=== PATIENT | female | born 1965 | race African-American/Black ===

== ENCOUNTER 2021-10-10 08:44 | Emergency (ER) | payer BC, MEDICAID ==
[~2021-10-10] VITALS: Ht 167.6 cm; Wt 95.0 kg
[2021-10-10] MEDS ORDERED: KETOROLAC 30MG/ML VIAL IV STA (09:10)
[2021-10-10 09:39] LABS: BASOPHILS % 0.3 % (0.0-2.0); HEMATOCRIT. 40.8 % (36.0-48.0); LYMPHOCYTES % 47.7 % (20.0-50.0); MEAN CORPUSCULAR HEMOGLOBIN 28.5 pg (28.0-32.0); MEAN CORPUSCULAR VOLUME 89.7 fL (81.0-99.0); MEAN PLATELET VOLUME 7.5 fl (7.4-10.4); MONOCYTES % 6.8 % (2.0-8.0); NEUTROPHILS % 39.2 % (40.0-76.0); PLATELET 269 x1000/uL (130-400); RED BLOOD CELL COUNT 4.55 mill/uL (4.2-5.4); RED CELL DISTRIBUTION WIDTH 14.3 % (11.6-14.6)
[2021-10-10 09:43] LABS: CHLORIDE 111 mEq/L (98-107)
[2021-10-10] MEDS ORDERED: CYCL10TA7 MT (11:03)
[2021-10-10] MEDS ORDERED: IBUP-2029 MT (11:03)
[2021-10-10 11:31] VITALS: BP 122/81
== END 2021-10-10 11:32 | disposition home or self-care (01) ==
LOC: ER 08:54
DX: M54.6 Pain in thoracic spine (principal); Z20.822 Contact with and (suspected) exposure to COVID-19
CPT/HCPCS: 36415; 71045; 80053; 85025; 93005; 96374; 99285; C9803; J1885; U0003; U0005